=== PATIENT | male | born 1945 | race Caucasian/White ===

== ENCOUNTER 2016-12-13 20:13 | Emergency (ER) | payer OTHER ==
[~2016-12-13] VITALS: Ht 167.6 cm; Wt 77.0 kg
[~2016-12-13 20:13] MED LIST: ATOR80TA PO; BISA10R PR; CIPR250T2 PO; ESCI10TA PO; LOSA25TA31 PO; MAGN30S PO; METO50TA PO; NORC7.5T PO; OXYB5TAB33 PO; PERI8.6T PO; ST J81CH PO
[2016-12-13 20:17] VITALS: BP 143/75; PULSE 88; RESP 20; TEMP 98.1; O2SAT 99
[2016-12-13] MEDS ORDERED: ATOR1TAB18 PO (20:50)
[2016-12-13] MEDS ORDERED: ASPI81CH CHEW (20:50)
[2016-12-13] MEDS ORDERED: OMEP20TA PO (20:50)
[2016-12-13] MEDS ORDERED: LISI-515 PO (20:50)
[2016-12-13] MEDS ORDERED: METO50TA PO (20:50)
--- NOTE | 2016-12-13 21:25 | PD ---
HPI Chief Complaint: Musculoskeletal Complaint Time Seen by Provider: 21:00 Travel History International Travel<30 days: No Contact w/Intl Traveler<30days: No Traveled to known affect area: No History of Present Illness HPI 71-year-old male with chief complaint of right anterior rib pain. Patient reports he sustained a mechanical fall while standing in his boat he fell forward injuring his right ribs onto the center console. He denies head injury. No loss of consciousness. He reports he did not fall to the ground. He reports the pain is constant, worse with deep breath movement and palpation, no alleviating factors, severity 6 out of 10. He denies headache, neck pain, chest pain, shortness of breath, abdominal pain, nausea or vomiting. PFSH Past Medical History Cancer: Yes Cardiovascular Problems: Yes (CABG x3) High Cholesterol: Yes Hypertension: Yes Kidney Stones: Yes Immunizations Current: Yes (SHINGLES VACC) Tetanus Vaccination: < 5 Years Influenza Vaccination: Yes ?: Not Past Surgical History Abdominal Aneurysm Repair: Yes Abdominal Surgery: Yes (HERNIA REPAIR) Cholecystectomy: Yes Coronary Artery Bypass Graft: Yes (2002) Coronary Stent: Yes Genitourinary Surgery: Yes (TUMORS REMOVED FROM BLADDER) Social History Alcohol Use: No Tobacco Use: No Substance Use: No Allergies-Medications (Allergen,Severity, Reaction): Coded Allergies: Penicillin (Verified Allergy, Severe, 03/08/16) Reported Meds & Prescriptions Reported Meds & Active Scripts Active Reported Omeprazole 20 Mg Tab 20 Mg PO DAILY Aspirin 81 Mg Chew 81 Mg CHEW DAILY Lisinopril 20 Mg Tab 20 Mg PO DAILY Atorvastatin (Atorvastatin Calcium) 80 Mg Tab 80 Mg PO HS Metoprolol Tartrate 50 Mg Tab 50 Mg PO BID Review of Systems Except as stated in HPI: all other systems reviewed are Neg General / Constitutional: No: Fever Eyes: No: Visual changes HENT: No: Headaches Cardiovascular: Positive: Other (right rib pain), No: Chest Pain or Discomfort Respiratory: No: Shortness of Breath Gastrointestinal: No: Abdominal Pain Physical Exam Narrative GENERAL: Alert, well-appearing male in no acute distress SKIN: Focused skin assessment warm/dry. No ecchymosis HEAD: Atraumatic. Normocephalic. EYES: Pupils equal and round. No scleral icterus. No injection or drainage. ENT: No nasal bleeding or discharge. Mucous membranes pink and moist. NECK: Trachea midline. No JVD. CARDIOVASCULAR: Regular rate and rhythm. No murmur appreciated. CHEST: Right anterior lateral rib tenderness. No crepitus. no overlying ecchymosis RESPIRATORY: No accessory muscle use. Clear to auscultation. Breath sounds equal bilaterally. GASTROINTESTINAL: Abdomen soft, non-tender, nondistended. Hepatic and splenic margins not palpable. MUSCULOSKELETAL: No obvious deformities. No clubbing. No cyanosis. No edema. NEUROLOGICAL: Awake and alert. No obvious cranial nerve deficits. Motor grossly within normal limits. Normal speech. PSYCHIATRIC: Appropriate mood and affect; insight and judgment normal. Data Data Last Documented VS Vital Signs Date Time Temp Pulse Resp B/P Pulse Ox O2 Delivery O2 Flow Rate FiO2 12/13/16 20:53 20 12/13/16 20:17 98.1 88 143/75 99 Orders Chest, Pa & Lat (12/13/16 ) [facility] Medical Decision Making Medical Screen Exam Complete: Yes Emergency Medical Condition: Yes Differential Diagnosis Rib fracture, contusion, pneumothorax Narrative Course Patient seen and evaluated. Patient stable at time of exam. Patient has tenderness to the right anterior lateral ribs. There is no crepitus. Breath sounds are clear and equal bilaterally. He has no abdominal pain or tenderness. Chest x-ray negative for rib fracture or pneumothorax. Noted for cardiomegaly. This was discussed with patient. He reports this is chronic. Discussed treatment options for Rib contusions. Patient reports he does not want anything for pain. He will take [id number] Tylenol. Discussed return precautions. Patient and family verbalized understanding. Diagnosis Primary Impression: Contusion of rib on right side Qualified Code: S20.211A - Contusion of rib on right side, initial encounter Referrals: Primary Care Physician Additional Instructions: Take [id number] Tylenol as needed for pain. Follow-up with her primary care provider. Return to emergency department if he developed new or worsening symptoms such as shortness of breath or chest pain Disposition: 01 DISCHARGE HOME Condition: Stable Alicia Tomlinson Dec 13, 2016 21:25
--- NOTE | 2016-12-13 21:47 | RADRPT ---
EXAM DATE/TIME: 12/13/2016 21:09 [place] COMPARISON: No previous studies available for comparison. INDICATIONS : Chest pain. MEDICAL HISTORY : Hypertension. Cardiovascular disease. SURGICAL HISTORY : CABG. Coronary artery stent. ENCOUNTER: Initial ACUITY: 1 day PAIN SCORE: 6/10 LOCATION: Right chest FINDINGS: The patient is status post sternotomy. The heart size is enlarged. The lungs are clear. No effusion i s seen. CONCLUSION: Cardiomegaly. Casey Corea MD on December 13, 2016 at 21:43 Board Certified Radiologist. This report was verified electronically.
== END 2016-12-13 22:12 | disposition home or self-care (01) ==
LOC: PHED 20:13 → PHEFT 22:12
DX: S20.211A Contusion of right front wall of thorax, initial encounter (principal); I10 Essential (primary) hypertension; E78.00 Pure hypercholesterolemia, unspecified; Z86.79 Personal history of other diseases of the circulatory system; Z87.442 Personal history of urinary calculi; W01.198A Fall on same level from slipping, tripping and stumbling with subsequent striking against other object, initial encounter; Y92.814 Boat as the place of occurrence of the external cause
CPT/HCPCS: 71020; 99283